=== PATIENT | male | born 1945 | race Caucasian/White ===

== ENCOUNTER 2024-09-13 10:57 | Inpatient (IN) | payer OTHER ==
[~2024-09-13] VITALS: Ht 154.9 cm; Wt 75.3 kg
[2024-09-13] MEDS: ONDANSETRON HCL 4MG/2ML INJ IV ONE (11:40)
[2024-09-13] MEDS: FAMOTIDINE 20MG/2ML VIAL IV ONE (11:40)
[2024-09-13 11:44] LABS: BASOPHILS % 0.5 % (0.0-2.0); EOSINOPHILS % 0.1 % (0.0-5.0); HEMATOCRIT. 39.4 % (42.0-52.0); HEMOGLOBIN. 13.8 g/dL (14.0-18.0); LYMPHOCYTES % 10.9 % (20.0-50.0); MEAN PLATELET VOLUME 7.2 fl (7.4-10.4); MONOCYTES % 5.0 % (2.0-8.0); NEUTROPHILS % 83.5 % (40.0-76.0); PLATELET 227 x1000/uL (130-400); RED BLOOD CELL COUNT 4.04 mill/uL (4.7-6.1); RED CELL DISTRIBUTION WIDTH 12.8 % (11.6-14.6)
[2024-09-13 12:15] LABS: CREATININE 1.3 mg/dL (0.6-1.3)
[2024-09-13 12:16] LABS: UREA NITROGEN BLOOD 21 mg/dL (9-23)
[2024-09-13 12:17] LABS: ASPARTATE AMINOTRANSFERASE 21 IU/L (<34)
[2024-09-13 12:18] LABS: BILIRUBIN TOTAL 0.8 mg/dL (0.1-1.0); PROTEIN TOTAL 7.0 g/dL (6.0-8.3)
[2024-09-13 13:15] LABS: TROPONIN I HIGH SENSITIVITY 17 ng/L (3.0-53)
[2024-09-13] MEDS: MORPHINE SULFATE 4 MG/ML INJ (FOR IV/IM USE) IV NR (13:38)
[2024-09-13] MEDS ORDERED: IOHEXOL-300 100 ML BOTTLE ONE (13:56)
[2024-09-13] MEDS ORDERED: GUAIFENESIN 200MG/10ML SUGAR FREE UDC PO PRN (20:00)
[2024-09-13] MEDS ORDERED: CLONIDINE 0.1MG TABLET PO PRN (20:00)
[2024-09-13] MEDS ORDERED: ONDANSETRON HCL 4MG/2ML INJ IV PRN (20:00)
[2024-09-13] MEDS ORDERED: DOCUSATE SODIUM 100MG CAPSULE PO PRN (20:00)
[2024-09-13] MEDS ORDERED: MAGNESIUM/ALUMINUM HYDROXIDE/SIMETHICONE 30ML UDC PO PRN (20:00)
[2024-09-13] MEDS ORDERED: IPRATROPIUM/ALBUTEROL 0.5-3(2.5)MG/3ML NEB HHN PRN (20:00)
[2024-09-13] MEDS ORDERED: ACETAMINOPHEN 325MG TABLET PO PRN ×2 (20:00)
[2024-09-13] MEDS: PIPERACILLIN/TAZO 3.375G/50ML 50 ML IV SCH (21:52)
[2024-09-13] MEDS: PANTOPRAZOLE SODIUM 40 MG/VIAL IV SCH (21:53)
[2024-09-13] MEDS: ENOXAPARIN 40MG/0.4ML SYR SUBCUT SCH (21:53)
[2024-09-13] MEDS: LOSARTAN 50 MG TABLET PO SCH (21:54)
[2024-09-14 00:35] VITALS: BP 115/72; PULSE 82; RESP 17; TEMP 36.5848
[2024-09-14 08:00] VITALS: BP 122/57; PULSE 61; RESP 18; TEMP 36.8; O2SAT 99
[2024-09-14 08:11] LABS: TRIGLYCERIDE 75.0 mg/dL (0-150)
[2024-09-14 08:12] LABS: LDL CHOLESTEROL 50.0 mg/dL (5-100)
[2024-09-14] MEDS: FOLIC ACID 1MG TABLET PO SCH (08:49)
[2024-09-14] MEDS: ASPIRIN 81MG TABLET PO SCH (08:49)
[2024-09-14] MEDS: METOPROLOL TARTRATE 50MG TABLET PO SCH (08:50)
[2024-09-14] MEDS: THIAMINE HCL 100MG TABLET PO SCH (08:50)
[2024-09-14 12:00] VITALS: BP 130/55; PULSE 59; RESP 18; TEMP 36.8; O2SAT 100
[2024-09-14] MEDS ORDERED: METO100T16 MT (16:25)
[2024-09-14 16:26] VITALS: BP 130/55; PULSE 59; TEMP 98.3; O2SAT 100
[2024-09-14] MEDS ORDERED: LOSA50TA41 PO (16:28)
[2024-09-14] MEDS ORDERED: ASPI-986 PO (16:28)
[2024-09-14] MEDS ORDERED: ATOR20TA65 PO (16:28)
[2024-09-14] MEDS ORDERED: PROT20 MT (16:30)
[2024-09-14] MEDS ORDERED: ATORVASTATIN CALCIUM 40MG TABLET PO SCH (21:00)
== END 2024-09-14 17:57 | disposition home or self-care (01) ==
LOC: ER 10:57 → EDBEDREQ 17:08 → EDBEDREQTM 17:08 → ENRESERV 17:28 → ER 17:44 → 8EST 18:27
PROVIDERS: ADMIT Hospitalist; ATTEND Hospitalist
DX: K80.00 Calculus of gallbladder with acute cholecystitis without obstruction (principal); I10 Essential (primary) hypertension; K29.70 Gastritis, unspecified, without bleeding; I25.10 Atherosclerotic heart disease of native coronary artery without angina pectoris; K82.8 Other specified diseases of gallbladder; Z79.899 Other long term (current) drug therapy
CPT/HCPCS: 36415; 74177; 76705; 80053; 80061; 84443; 84484; 85025; 93005; 93970; 97162; 97166; 99285; J1308; J1650; J2270; J2405; J2470; J2543; Q9967